=== PATIENT | male | born 2000 | race Caucasian/White ===

== ENCOUNTER 2024-03-03 17:45 | Emergency (ER) | payer BC, SELFPAY ==
[2024-03-03 17:56] VITALS: BP 147/81; PULSE 85; RESP 18; TEMP 36.7; O2SAT 100
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
[2024-03-03 18:42] VITALS: BP 143/92; PULSE 75; RESP 20; TEMP 37.1; O2SAT 98
== END 2024-03-03 18:43 | disposition home or self-care (01) ==
LOC: ANHED 18:36
PROVIDERS: Emergency Provider Physician Assistant
DX: S09.90XA Unspecified injury of head, initial encounter (principal); W20.8XXA Other cause of strike by thrown, projected or falling object, initial encounter
CPT/HCPCS: 99283